=== PATIENT | female | born 1980 | race African-American/Black ===

== ENCOUNTER 2016-09-25 17:20 | Emergency (ER) | payer OTHER ==
[~2016-09-25] VITALS: Ht 154.9 cm; Wt 90.7 kg
[~2016-09-25 17:20] MED LIST: ATOR40TA59 PO; BUTA1CAP29 PO; HYDR50TA6 PO; IBUP-1027 PO; ONDA4TAB10 SL; POTA20TA82 PO; SULF1TAB24 PO
[2016-09-25 17:59] VITALS: BP 122/79
[2016-09-25] MEDS ORDERED: NAPROXEN 500 MG TABLET PO STA (18:08)
[2016-09-25] MEDS ORDERED: HYDROcodone/APAP 5/325MG 1 TAB TABLET PO ONE (18:15)
[2016-09-25] MEDS ORDERED: CYCLOBENZAPRINE 10 MG TABLET. PO ONE (18:15)
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
[2016-09-25] MEDS ORDERED: CYCL10TA2 PO (19:13)
[2016-09-25] MEDS ORDERED: DICL50TA2 PO (19:13)
[2016-09-25] MEDS ORDERED: DICL100G7 TP (19:13)
--- NOTE | 2016-09-26 08:36 | RAD ---
Examination: 3 views of the left elbow History: History of left elbow pain, injury. Comparison: None available Findings: The alignment of the elbow joint grossly appears unremarkable. There is no obvious acute fracture identified. Impression: No acute osseous findings
--- NOTE | 2016-09-26 08:37 | RAD ---
Examination: 3 views of the left shoulder History: History of injury, pain. Comparison: None available Findings: The acromioclavicular joint grossly appears unremarkable. The humerus head is within the glenoid. There is no acute fracture identified. Impression: No acute osseous findings
== END 2016-09-25 19:22 | disposition home or self-care (01) ==
LOC: ER 19:07
DX: S46.912A Strain of unspecified muscle, fascia and tendon at shoulder and upper arm level, left arm, initial encounter (principal); S53.402A Unspecified sprain of left elbow, initial encounter; E78.00 Pure hypercholesterolemia, unspecified; I10 Essential (primary) hypertension; F17.200 Nicotine dependence, unspecified, uncomplicated; X58.XXXA Exposure to other specified factors, initial encounter; Y93.89 Activity, other specified; Y99.8 Other external cause status; Y92.89 Other specified places as the place of occurrence of the external cause
CPT/HCPCS: 73030; 73080; 99284

== ENCOUNTER 2017-03-04 19:45 | Emergency (ER) | payer OTHER ==
[~2017-03-04] VITALS: Ht 154.9 cm; Wt 83.9 kg
[~2017-03-04 19:45] MED LIST changes: +CYCL10TA2 PO; +DICL100G18 TP; +DICL50TA2 PO
[2017-03-04] MEDS ORDERED: HYDROcodone/APAP 5/325MG 1 TAB TABLET PO ONE (20:30)
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
[2017-03-04] MEDS ORDERED: HYDR-971 PO (21:44)
[2017-03-04] MEDS ORDERED: CYCL5TAB PO (21:44)
[2017-03-04 21:56] VITALS: BP 121/78
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
== END 2017-03-04 21:56 | disposition home or self-care (01) ==
LOC: ER 19:45
DX: S16.1XXA Strain of muscle, fascia and tendon at neck level, initial encounter (principal); S49.91XA Unspecified injury of right shoulder and upper arm, initial encounter; E78.00 Pure hypercholesterolemia, unspecified; I10 Essential (primary) hypertension; V43.52XA Car driver injured in collision with other type car in traffic accident, initial encounter; Y93.I9 Activity, other involving external motion; Y92.410 Unspecified street and highway as the place of occurrence of the external cause; Y99.8 Other external cause status
CPT/HCPCS: 72040; 73030; 99284

== ENCOUNTER 2017-12-30 13:51 | Emergency (ER) | payer OTHER ==
[~2017-12-30] VITALS: Ht 154.9 cm; Wt 83.9 kg
[~2017-12-30 13:51] MED LIST changes: +CYCL5TAB PO; +HYDR-971 PO
[2017-12-30 14:10] VITALS: BP 127/78
--- NOTE | 2017-12-30 14:26 | PHYS DOC ---
Past Medical History Past Medical History: High Cholesterol, Hypertension, Sinusitis Additional Past Medical Histor: SEASONAL ALLERGIES Past Surgical History: Tubal ligation Alcohol Use: Occasionally Drug Use: None Adult General Chief Complaint Chief Complaint: HEADACHE HPI HPI Patient is a 37 year old female with history of hypertension, smoking, who presents today complaining of a 8/10 frontal headache with frontal pressure that began one week ago. Patient states she has history of seasonal allergies and is supposed to be on an allergy medicine. Patient states she has not taken the medication 4 weeks because her insurance was out and she could not afford the medication. Patient denies any fever. Denies this being the worst headache in her life. Has not tried anything for the headache. Review of Systems Review of Systems Constitutional: Denies fever or chills [] Eyes: Denies change in visual acuity, redness, or eye pain [] HENT: Denies nasal congestion or sore throat [] Respiratory: Denies cough or shortness of breath [] Cardiovascular: No additional information not addressed in HPI [] GI: Denies abdominal pain, nausea, vomiting, bloody stools or diarrhea [] : Denies dysuria or hematuria [] Musculoskeletal: Denies back pain or joint pain [] Integument: Denies rash or skin lesions [] Neurologic: Reports headache, reports frontal head pressure, denies focal weakness or sensory changes [] All other systems were reviewed and found to be within normal limits, except as documented in this note. Current Medications Current Medications Current Medications Medications (Trade) Dose Ordered Sig/Juan Start Time Stop Time Status Last Admin Dose Admin Dexamethasone Sodium Phosphate (Decadron) 10 mg 1X ONCE 12/30/17 14:30 12/30/17 14:31 DC Ketorolac Tromethamine (Toradol Im) 60 mg 1X ONCE 12/30/17 14:30 12/30/17 14:31 DC Allergies Allergies Allergies Coded Allergies Type Severity Reaction Last Updated Verified No Known Drug Allergies 12/02/15 No Physical Exam Physical Exam Constitutional: Well developed, well nourished, no acute distress, non-toxic appearance. [] HENT: Normocephalic, atraumatic, bilateral external ears normal, oropharynx moist, no oral exudates, nose normal. [] Eyes: PERRLA, EOMI, conjunctiva normal, no discharge. [] Neck: Normal range of motion, no tenderness, supple, no stridor. [] Cardiovascular:Heart rate regular rhythm, no murmur [] Lungs & Thorax: Bilateral breath sounds clear to auscultation [] Abdomen: Bowel sounds normal, soft, no tenderness, no masses, no pulsatile masses. [] Skin: Warm, dry, no erythema, no rash. [] Back: No tenderness, no CVA tenderness. [] Extremities: No tenderness, no cyanosis, no clubbing, ROM intact, no edema. [] Neurologic: Alert and oriented X 3, normal motor function, normal sensory function, no focal deficits noted. Cranial nerves II-XII intact. Psychologic: Affect normal, judgement normal, mood normal. [] Current Patient Data Vital Signs Vital Signs Date Time Temp Pulse Resp B/P (MAP) Pulse Ox O2 Delivery O2 Flow Rate FiO2 12/30/17 14:10 98.9 85 16 127/78 (94) 99 Room Air 98.9 EKG EKG [] Radiology/Procedures Radiology/Procedures [] Course & Med Decision Making Course & Med Decision Making Pertinent Labs and Imaging studies reviewed. (See chart for details) This is a 37-year-old female patient presenting to the ED today with a frontal headache and pressure for one week. Patient has history of seasonal allergies, has not taken has allergy medications because of insurance issues. I recommended she starts using aovp-wjc-jymhrum allergy medications with a decongestant including Claritin-D and Zyrtec-D. Also recommended Flonase. She is afebrile and appears well. Provided return precautions and discharged in stable condition. Follow-up with her own PCP in the next 1-2 weeks. Encouraged patient to consider smoking cessation. Dragon Disclaimer Dragon Disclaimer This electronic medical record was generated, in whole or in part, using a voice recognition dictation system. Departure Departure Impression: Primary Impression: Headache Additional Impressions: Seasonal allergies Smoking addiction Disposition: 01 HOME, SELF-CARE Condition: STABLE Referrals: NON,STAFF (PCP) Follow-up with your doctor in 1-2 weeks Patient Instructions: Headache and Allergies, Smoking Cessation, Tips For Success Additional Instructions: You were evaluated in the emergency room for a headache, we highly recommend you take your allergy medications, you can take [id number] Claritin-D or Zyrtec-D. Also use dwgi-bhh-crpteei Flonase. Follow-up with your doctor in 1-2 weeks. Come back to the ED at any point symptoms worsen. Consider smoking cessation. Scripts Loratadine/Pseudoephedrine (CLARITIN-D 12 HOUR TABLET) 1 Each Tab.er.12h 1 TAB PO BID, #20 TAB Prov: STEVE PHIPPS APRN 12/30/17 Diclofenac Sodium (DICLOFENAC SODIUM) 50 Mg Tablet.dr 1 TAB PO BID, #60 TAB 1 Refill Prov: STEVE PHIPPS APRN 12/30/17 Prednisone (PREDNISONE) 50 Mg Tablet 1 TAB PO DAILY, #5 TAB Prov: STEVE PHIPPS APRN 12/30/17 Problem Qualifiers Primary Impression: Headache Headache type: unspecified Headache chronicity pattern: unspecified pattern Intractability: not intractable Qualified Codes: R51 - Headache STEVE PHIPPS APRN Dec 30, 2017 14:26
[2017-12-30] MEDS ORDERED: KETOROLAC 60 MG/2 ML INJ. IM ONE (14:30)
[2017-12-30] MEDS ORDERED: DEXAMETHASONE SOD PHOS 20 MG/5 ML VIAL. IM ONE (14:30)
[2017-12-30] MEDS ORDERED: PRED50TA PO (14:44)
[2017-12-30] MEDS ORDERED: LORA1TAB47 PO (14:46)
[2017-12-30] MEDS ORDERED: DICL50TA4 PO (14:46)
== END 2017-12-30 14:58 | disposition home or self-care (01) ==
LOC: ER 13:51
DX: R51 Headache (principal); J30.2 Other seasonal allergic rhinitis; E78.00 Pure hypercholesterolemia, unspecified; I10 Essential (primary) hypertension; Z87.891 Personal history of nicotine dependence
CPT/HCPCS: 96372; 99284; J1100; J1885

== ENCOUNTER 2019-10-21 12:22 | Emergency (ER) | payer OTHER ==
[~2019-10-21] VITALS: Ht 154.9 cm; Wt 77.3 kg
[~2019-10-21 12:22] MED LIST changes: -DICL100G18 TP; +DICL100G54 TP; +DICL50TA4 PO; +HYDR-3164 PO; -HYDR-971 PO; +LORA1TAB47 PO; +POTA20TA4 PO; -POTA20TA82 PO; +PRED50TA PO
--- NOTE | 2019-10-21 12:40 | PHYS DOC ---
Past Medical History Past Medical History: High Cholesterol, Hypertension, Sinusitis Additional Past Medical Histor: SEASONAL ALLERGIES Past Surgical History: Tubal ligation Smoking Status: Current Every Day Smoker Alcohol Use: Occasionally Drug Use: None General Adult EDM: Chief Complaint: COUGH HPI: HPI: Patient is a 39 year old female who presents with patient states woke up yesterday with a sore throat, sinus congestion and drainage, headache and intermittent cough. She states that she is only been taking Tylenol of which she did take some before she came to the ER. Patient states she has a hard time swallowing. Upon walking in the room patient is eating a foot long [employer] sandwich without difficulty of swallowing. Patient rates her pain a 6 out of 10. Patient states she has not taken any medications for her other symptoms. Review of Systems: Review of Systems: HENT: nasal congestion or sore throat. [] Respiratory: cough or denies shortness of breath. [] Heart Score: Risk Factors: Risk Factors: DM, Current or recent (<one month) smoker, HTN, HLP, family history of CAD, obesity. Risk Scores: Score 0 - 3: 2.5% MACE over next 6 weeks - Discharge Home Score 4 - 6: 20.3% MACE over next 6 weeks - Admit for Clinical Observation Score 7 - 10: 72.7% MACE over next 6 weeks - Early Invasive Strategies Allergies: Allergies: Allergies Coded Allergies Type Severity Reaction Last Updated Verified No Known Drug Allergies 12/02/15 No Physical Exam: PE: Constitutional: Well developed, well nourished, no acute distress, non-toxic appearance. [] HENT: Normocephalic, atraumatic, bilateral external ears normal, oropharynx moist, no oral exudates, nose normal. Left tonsil 2+ swelling and throat redness. Right tympanic reddened. Left tympanic foggy. [] Eyes: PERRLA, EOMI, conjunctiva normal, no discharge. [] Neck: Normal range of motion, no tenderness, supple, no stridor. [] Cardiovascular:Heart rate regular rhythm, no murmur [] Lungs & Thorax: Bilateral breath sounds clear to auscultation [] Abdomen: Bowel sounds normal, soft, no tenderness, no masses, no pulsatile masses. [] Skin: Warm, dry, no erythema, no rash. [] Back: No tenderness, no CVA tenderness. [] Extremities: No tenderness, no cyanosis, no clubbing, ROM intact, no edema. [] Neurologic: Alert and oriented X 3, normal motor function, normal sensory function, no focal deficits noted. [] Psychologic: Affect normal, judgement normal, mood normal. [] EKG: EKG: [] Radiology/Procedures: Radiology/Procedures: [] Impression: [facility] [address] [place] [address] IMAGING REPORT Signed PATIENT: GILBERT GIRALDO ACCOUNT: [id number] : 1980 LOCATION: ER AGE: 39 SEX: F EXAM STATUS: PRE ER ORD. PHYSICIAN: LISSETTE DAVIES APRN REASON: cough PROCEDURE: PORTABLE CHEST 1V PORTABLE CHEST 1V Clinical Indication: Reason: cough / Spl. Instructions: / History: Comparison: two-view chest December 30, 2015. Findings: The cardiomediastinal silhouette is normal. Lungs are clear. There is no pneumothorax. No pleural effusion is appreciated. No acute bone abnormality. Small well-corticated bone fragment just superior to the distal left clavicle. Finding may be due to old injury. IMPRESSION: No acute cardiopulmonary process. Electronically signed by: Fransisco Whitfield MD (10/21/2019 12:50 PM) [facility] DICTATED and SIGNED BY: FRANSISCO WHITFIELD MD DATE: 10/21/19 1250 Course & Med Decision Making: Course & Med Decision Making Pertinent Labs and Imaging studies reviewed. (See chart for details) [] Alert and oriented. Speaks in full clear sentences. No trismus. Uvula midline. Throat is reddened and left tonsil appears to be 2+ swelling compared to right tonsil. Right tympanic reddened. Left tympanic foggy. Lungs are clear to auscultation all lobes. She is afebrile. Vital signs within normal limits. She has a history of hypertension, high cholesterol, seasonal allergies, tubal ligation and she is a current smoker. Denies being around anyone else that is sick. COVID-19 CRITERIA: The patient was evaluated during the global COVID-19 pandemic, and that diagnosis was suspected/considered upon their initial presentation. Their evaluation, treatment and testing was consistent with current guidelines for patients who present with complaints or symptoms that may be related to COVID-19. Елена Disclaimer: Елена Disclaimer: This electronic medical record was generated, in whole or in part, using a voice recognition dictation system. COVID-19 Patient Risks: Age 65 or older: No Sign of co-morbidity: Yes Exp to person + for COVID: No Exp to PUI: No Travel from affected area: No Lower respiratory symptoms: Yes Fever: No Other: No PPE Use: Full PPE with N95 mask or PAPR: Yes Departure Departure Impression: Primary Impression: Sinusitis Qualified Codes: J01.90 - Acute sinusitis, unspecified Additional Impressions: Otitis media Qualified Codes: H66.001 - Acute suppurative otitis media without spontaneous rupture of ear drum, right ear Sore throat Disposition: HOME, SELF-CARE Condition: STABLE Referrals: NON,STAFF (PCP) Patient Instructions: Otitis Media, Adult, Sinusitis Additional Instructions: Take Tylenol for your pain. Take medications as prescribed and with food. Follow-up with your primary care provider. Try using nasal spray such as Nasonex. Scripts Mometasone Furoate (NASONEX) 17 Gm [place].pump 2 SPRAY NS DAILY, #1 INHALER 5 Refills Prov: LISSETTE DAVIES APRN 10/21/19 Cetirizine Hcl (ZYRTEC) 10 Mg Tablet 1 TAB PO DAILY, #30 TAB 5 Refills Prov: LISSETTE DAVIES APRN 10/21/19 Azithromycin (AZITHROMYCIN TABLET) 250 Mg Tablet 1 PKG PO UD for 5 Days, #6 TAB 0 Refills 2 the first day followed by 1 for days 2-5 Prov: LISSETTE DAVIES APRN 10/21/19 Justicifation of Admission Dx: Justifications for Admission: Justification of Admission Dx: N/A (No admission needed) LISSETTE DAVIES APRN Oct 21, 2019 12:40
--- NOTE | 2019-10-21 12:53 | RAD ---
PORTABLE CHEST 1V Clinical Indication: Reason: cough / Spl. Instructions: / History: Comparison: two-view chest December 30, 2015. Findings: The cardiomediastinal silhouette is normal. Lungs are clear. There is no pneumothorax. No pleural effusion is appreciated. No acute bone abnormality. Small well-corticated bone fragment just superior to the distal left clavicle. Finding may be due to old injury. IMPRESSION: No acute cardiopulmonary process. Electronically signed by: Fransisco Moore MD (10/21/2019 12:50 PM) [facility]
[2019-10-21] MEDS ORDERED: CETI10TA24 PO (13:01)
[2019-10-21] MEDS ORDERED: AZIT250T6 PO (13:01)
[2019-10-21] MEDS ORDERED: MOME17SP NS (13:02)
[2019-10-21 13:03] VITALS: BP 120/77
== END 2019-10-21 13:14 | disposition home or self-care (01) ==
LOC: ER 12:22
DX: J01.90 Acute sinusitis, unspecified (principal); H66.001 Acute suppurative otitis media without spontaneous rupture of ear drum, right ear; E78.00 Pure hypercholesterolemia, unspecified; I10 Essential (primary) hypertension; F17.200 Nicotine dependence, unspecified, uncomplicated
CPT/HCPCS: 71045; 87070; 87880; 99284

== ENCOUNTER 2019-10-23 11:15 | Emergency (ER) | payer SELFPAY ==
[~2019-10-23] VITALS: Ht 154.9 cm; Wt 79.0 kg
[~2019-10-23 11:15] MED LIST changes: +AZIT250T6 PO; +CETI10TA24 PO; +MOME17SP NS
--- NOTE | 2019-10-23 12:11 | PHYS DOC ---
Past Medical History Past Medical History: High Cholesterol, Hypertension, Sinusitis Additional Past Medical Histor: SEASONAL ALLERGIES Past Surgical History: Tubal ligation Smoking Status: Current Every Day Smoker Alcohol Use: Occasionally Drug Use: None General Adult EDM: Chief Complaint: SORE THROAT HPI: HPI: Patient is a 39 year old female presented to ER today for evaluation of sore throat, left-sided neck swelling. Patient was evaluated here on Tuesday, 2 days ago for sore throat, was diagnosed with sinusitis, strep test was negative. Patient was discharged home with Zithromax. Patient says she stopped taking the medication yesterday, she woke up this morning, having more pain on the left side of her neck, her voice became hoarse, hurt to open her mouth. Patient denies fever. Review of Systems: Review of Systems: Constitutional: Denies fever or chills. [] Eyes: Denies change in visual acuity. [] HENT: Positive for nasal congestion, sore throat, neck pain Respiratory: Denies cough or shortness of breath. [] Cardiovascular: Denies chest pain or edema. [] GI: Denies abdominal pain, nausea, vomiting, bloody stools or diarrhea. [] : Denies dysuria. [] Musculoskeletal: Denies back pain or joint pain. [] Integument: Denies rash. [] Neurologic: Denies headache, focal weakness or sensory changes. [] Endocrine: Denies polyuria or polydipsia. [] Lymphatic: Denies swollen glands. [] Psychiatric: Denies depression or anxiety. [] Heart Score: Risk Factors: Risk Factors: DM, Current or recent (<one month) smoker, HTN, HLP, family history of CAD, obesity. Risk Scores: Score 0 - 3: 2.5% MACE over next 6 weeks - Discharge Home Score 4 - 6: 20.3% MACE over next 6 weeks - Admit for Clinical Observation Score 7 - 10: 72.7% MACE over next 6 weeks - Early Invasive Strategies Allergies: Allergies: Allergies Coded Allergies Type Severity Reaction Last Updated Verified No Known Drug Allergies 12/02/15 No Physical Exam: PE: Constitutional: Well developed, well nourished, no acute distress, non-toxic appearance. [] HENT: Normocephalic, atraumatic, bilateral external ears normal, oral pharynx area is erythematous, tonsil swollen, no obvious exudation, left side neck swollen and tender, no trismus. Eyes: PERRLA, EOMI, conjunctiva normal, no discharge. [] Neck: Normal range of motion, Left anterior cervical lymph node swollen and tenderness, supple, no stridor. [] Cardiovascular:Heart rate regular rhythm, no murmur [] Lungs & Thorax: Bilateral breath sounds clear to auscultation [] Abdomen: Bowel sounds normal, soft, no tenderness, no masses, no pulsatile masses. [] Skin: Warm, dry, no erythema, no rash. [] Back: No tenderness, no CVA tenderness. [] Extremities: No tenderness, no cyanosis, no clubbing, ROM intact, no edema. [] Neurologic: Alert and oriented X 3, normal motor function, normal sensory function, no focal deficits noted. [] Psychologic: Affect normal, judgement normal, mood normal. [] Current Patient Data: Vital Signs: Vital Signs Date Time Temp Pulse Resp B/P (MAP) Pulse Ox O2 Delivery O2 Flow Rate FiO2 10/23/19 11:57 98.7 102 18 142/88 (106) 97 Room Air 98.7 EKG: EKG: [] Radiology/Procedures: Radiology/Procedures: [][facility] [address] [place] [address] IMAGING REPORT Signed PATIENT: GILBERT GIRALDO ACCOUNT: [id number] : 1980 LOCATION: ER AGE: 39 SEX: F EXAM STATUS: REG ER ORD. PHYSICIAN: SOTERO ALVES DO REASON: SORETHROAT, LEFT SIDE NECK SWELLING, TONSILAR SWELLING PROCEDURE: CT SOFT TISSUE NECK W/CONTRAST CT SOFT TISSUE NECK W/CONTRAST DATE: 10/23/2019 12:50 PM INDICATION: Reason: SORETHROAT, LEFT SIDE NECK SWELLING, TONSILAR SWELLING / Spl. Instructions: / History: TECHNIQUE: Axial computed tomography of the neck with intravenous contrast according to the standard neck protocol. 65 cc of Isovue-370 was administered intravenously. One or more of the following dose reduction techniques were utilized: Automated exposure control (AEC), Adjustment of mA and/or kV according to patient size, Use of iterative reconstruction technique such as ASiR, CT scan done according to ALARA and image gently/image wisely COMPARISON: None. FINDINGS: Marked enlargement of the palatine tonsils, greater on the left. Hypoattenuating region along/within the left palatine tonsil measuring 1.5 x 1.1 x 2.4 cm (AP by TV by CC). Narrowing of the oropharynx. Enlargement of the adenoids and lingual tonsils. Thickening of the retropharyngeal soft tissues without a discrete fluid collection. Scattered subcentimeter lymph nodes are seen in the neck. None are pathologically enlarged or abnormally enhancing. The parotid, submandibular, and thyroid glands are normal. The muscles of the neck are normal. Vessels of the neck demonstrate normal course, caliber, and enhancement. The visualized posterior fossa and brain is unremarkable. The visualized orbits and paranasal sinuses are normal. The cervical spine is normal. Paraseptal and centrilobular emphysema. IMPRESSION: 1. Marked enlargement of the palatine tonsils with 2.4 cm abscess on the left. There is also enlargement of the adenoids and lingual tonsils, with narrowing of the oropharynx. 2. Thickening of the retropharyngeal soft tissues without a discrete fluid collection. Electronically signed by: Tobin Mckinney MD (10/23/2019 1:48 PM) [id number] DICTATED and SIGNED BY: TOBIN MCKINNEY MD DATE: 10/23/19 1348 Course & Med Decision Making: Course & Med Decision Making Pertinent Labs and Imaging studies reviewed. (See chart for details) Patient is a 39-year-old female who was found to have peritonsillar abscess, there is no ENT surgeon at this hospital, patient will need to be transferred to [facility] for I&D procedure. Dr. Valles accepted patient for transfer to [facility] emergency department. Dragon Disclaimer: Елена Disclaimer: This electronic medical record was generated, in whole or in part, using a voice recognition dictation system. Departure Departure Impression: Primary Impression: Tonsillar abscess Disposition: 02 TRANSFER T-[facility] ACCEPTED BY DR. VALLES) Condition: IMPROVED Referrals: UNKNOWN PCP NAME (PCP) Justicifation of Admission Dx: Justifications for Admission: Justification of Admission Dx: N/A SOTERO ALVES DO Oct 23, 2019 12:11
[2019-10-23] MEDS ORDERED: methylPREDNISolone SOD SUCC PF 125 MG/2 ML VIAL. IV ONE (12:15)
[2019-10-23] MEDS ORDERED: cefTRIAXone IV Push 1 GM VIAL. IVP ONE (12:15)
[2019-10-23 12:26] LABS: BASO # 0.1 x10^3/uL (0.0-0.2); BASO % 0 % (0-3); EOS # 0.1 x10^3/uL (0.0-0.7); EOS % 1 % (0-3); HEMATOCRIT 37.6 % (36.0-47.0); HEMOGLOBIN 12.7 g/dL (12.0-15.5); LYMPH # 1.1 x10^3/uL (1.0-4.8); LYMPH % 7 % (24-48); MEAN CORPUSCULAR HEMOGLOBIN 31 pg (25-35); MEAN CORPUSCULAR HGB CONC 34 g/dL (31-37); MEAN CORPUSCULAR VOLUME 91 fL (79-100); MONO # 1.7 x10^3/uL (0.0-1.1); MONO % 11 % (0-9); NEUT # 12.6 x10^3/uL (1.8-7.7); NEUT % 81 % (31-73); PLATELET COUNT 297 x10^3/uL (140-400); RED BLOOD COUNT 4.11 x10^6/uL (3.50-5.40); RED CELL DISTRIBUTION WIDTH 15.6 % (11.5-14.5); WHITE BLOOD COUNT 15.6 x10^3/uL (4.0-11.0)
[2019-10-23 12:32] LABS: CREATININE 0.8 mg/dL (0.6-1.0); GFR 96.6; POTASSIUM 3.6 mmol/L (3.5-5.1)
[2019-10-23 12:39] LABS: ALBUMIN 2.8 g/dL (3.4-5.0); ALBUMIN/GLOBULIN RATIO 0.6 (1.0-1.7); TOTAL BILIRUBIN 0.3 mg/dL (0.2-1.0); TOTAL PROTEIN 7.5 g/dL (6.4-8.2)
[2019-10-23] MEDS ORDERED: CONTRAST GIVEN. MC PRN (13:15)
[2019-10-23] MEDS ORDERED: IOHEXOL 300 MG/ML 100ML VIAL. IV ONE (13:15)
--- NOTE | 2019-10-23 13:51 | RAD ---
CT SOFT TISSUE NECK W/CONTRAST DATE: 10/23/2019 12:50 PM INDICATION: Reason: SORETHROAT, LEFT SIDE NECK SWELLING, TONSILAR SWELLING / Spl. Instructions: / History: TECHNIQUE: Axial computed tomography of the neck with intravenous contrast according to the standard neck protocol. 65 cc of Isovue-370 was administered intravenously. One or more of the following dose reduction techniques were utilized: Automated exposure control (AEC), Adjustment of mA and/or kV according to patient size, Use of iterative reconstruction technique such as ASiR, CT scan done according to ALARA and image gently/image wisely COMPARISON: None. FINDINGS: Marked enlargement of the palatine tonsils, greater on the left. Hypoattenuating region along/within the left palatine tonsil measuring 1.5 x 1.1 x 2.4 cm (AP by TV by CC). Narrowing of the oropharynx. Enlargement of the adenoids and lingual tonsils. Thickening of the retropharyngeal soft tissues without a discrete fluid collection. Scattered subcentimeter lymph nodes are seen in the neck. None are pathologically enlarged or abnormally enhancing. The parotid, submandibular, and thyroid glands are normal. The muscles of the neck are normal. Vessels of the neck demonstrate normal course, caliber, and enhancement. The visualized posterior fossa and brain is unremarkable. The visualized orbits and paranasal sinuses are normal. The cervical spine is normal. Paraseptal and centrilobular emphysema. IMPRESSION: 1. Marked enlargement of the palatine tonsils with 2.4 cm abscess on the left. There is also enlargement of the adenoids and lingual tonsils, with narrowing of the oropharynx. 2. Thickening of the retropharyngeal soft tissues without a discrete fluid collection. Electronically signed by: Jermaine Mckinney MD (10/23/2019 1:48 PM) [id number]
[2019-10-23 13:52] LABS: % EOS 1 % (0-5); % LYMPHS 9 % (24-48); % MONOS 8 % (0-10); % SEGS 82 % (35-66)
[2019-10-23 13:54] LABS: PLT ESTIMATE ADEQUATE (ADEQUATE)
[2019-10-23 14:23] VITALS: BP 145/87
[2019-10-23] MEDS ORDERED: fentaNYL PF VIAL 100 MCG/2 ML VIAL IVP ONE (14:45)
== END 2019-10-23 15:21 | disposition short-term general hospital (02) ==
LOC: ER 11:15
DX: J36 Peritonsillar abscess (principal); I10 Essential (primary) hypertension; E78.00 Pure hypercholesterolemia, unspecified; F17.200 Nicotine dependence, unspecified, uncomplicated
CPT/HCPCS: 36415; 70491; 80053; 85007; 85025; 96374; 96375; 99285; J0696; J2930; J3010; Q9967; U0003

== ENCOUNTER 2020-08-09 18:39 | Emergency (ER) | payer SELFPAY ==
[~2020-08-09] VITALS: Ht 154.9 cm; Wt 92.0 kg
[~2020-08-09 18:39] MED LIST changes: -CETI10TA24 PO; +CETI10TA74 PO; -HYDR50TA6 PO; +HYDR50TA9 PO
--- NOTE | 2020-08-09 18:51 | PHYS DOC ---
Past Medical History Past Medical History: High Cholesterol, Hypertension, Sinusitis Additional Past Medical Histor: SEASONAL ALLERGIES Past Surgical History: Tubal ligation Smoking Status: Current Every Day Smoker Alcohol Use: Occasionally Drug Use: None General Adult EDM: Chief Complaint: ALTERED MENTAL STATUS HPI: HPI: Patient is a 40 year old female who presents with altered mental status. Patient was found asleep and intoxicated in her car at a gas station-- after the attendant noted that the patient had been sitting in car for 30 minutes and called fire station to further investigate. En route to ED patient was given Narcan by EMS which did not improve for her condition. Patient admits to drinking alcohol, and having several beers before driving. Patient denies any other drug use or prescription drug use. HPI limited secondary to patient intoxication. Review of Systems: Review of Systems: Review of systems limited secondary to intoxication. Heart Score: C/O Chest Pain: N/A Allergies: Allergies: Allergies Coded Allergies Type Severity Reaction Last Updated Verified No Known Drug Allergies 12/02/15 No Physical Exam: PE: Constitutional: Well developed, well nourished, no acute distress, non-toxic appearance HENT: Normocephalic, atraumatic Eyes: PERRL, EOMI, conjunctiva normal, no discharge. Horizontal nystagmus present Neck: Normal range of motion, no tenderness, supple Lungs & Thorax: No respiratory distress, equal chest rise and fall Abdomen: Soft, no tenderness Skin: Warm, dry, no erythema, no rash Back: No tenderness, no CVA tenderness Extremities: No tenderness, ROM intact, no edema Neurologic: Normal motor function, normal sensory function, no focal deficits noted Psychologic: Affect normal, judgment normal EKG: EKG: EKG reviewed at 1846. Sinus tachycardia, no STEMI, no A. fib, no peaked T waves. HR 101 bpm. QT/QTc 336/436 ms Radiology/Procedures: Radiology/Procedures: [] Course & Med Decision Making: Course & Med Decision Making Pertinent Labs and Imaging studies reviewed. (See chart for details) Patient is intoxicated female brought in to the ED by EMS--and was found to have JOHN of 314. EKG was obtained which showed sinus tachycardia but no other abnormalities. Patient was given banana bag and IV fluid. Labs were drawn which showed no emergent abnormalities. Toxicology showed no other drugs or abnormal results. Urine sample showed trichomonas and patient was discharged with prescription for antibiotics. Patient's intoxication improved throughout duration of her ED stay, was able to ambulate normally and hold a conversation prior to discharge. Patient received a ride home from ED. Patient stable for discharge with outpatient follow-up with PCP. Discussed findings and plan with patient, who acknowledges understanding and agreement. Елена Disclaimer: Елена Disclaimer: This electronic medical record was generated, in whole or in part, using a voice recognition dictation system. Departure Departure Impression: Primary Impression: Alcohol intoxication Qualified Codes: F10.920 - Alcohol use, unspecified with intoxication, uncomplicated Additional Impression: Trichomonal cystitis Disposition: 01 DC HOME SELF CARE/HOMELESS Condition: STABLE Referrals: UNKNOWN PCP NAME (PCP) Patient Instructions: Alcohol Intoxication, Yriy-mi-Dzbf, How Much is Too Much Alcohol, Vjfa-of-Wvog, Trichomoniasis-Brief Scripts Metronidazole (FLAGYL) 500 Mg Tablet 500 MG PO BID for Vaginosis for 7 Days, #14 TAB Prov: HEIKE ARAYA DO 08/09/20 HEIKE ARAYA DO Aug 09, 2020 18:51
[2020-08-09] MEDS ORDERED: MULTIVIT INFUSN,ADULT 4,VIT K 10 ML, THIAMINE INJ 100 MG, FOLIC ACID INJ 1 MG in IV NOR... IV ONE (19:00)
[2020-08-09 19:12] LABS: BASO # 0.1 x10^3/uL (0.0-0.2); BASO % 1 % (0-3); EOS # 0.2 x10^3/uL (0.0-0.7); EOS % 3 % (0-3); HEMATOCRIT 37.3 % (36.0-47.0); HEMOGLOBIN 12.3 g/dL (12.0-15.5); LYMPH # 2.1 x10^3/uL (1.0-4.8); LYMPH % 41 % (24-48); MEAN CORPUSCULAR HEMOGLOBIN 30 pg (25-35); MEAN CORPUSCULAR HGB CONC 33 g/dL (31-37); MEAN CORPUSCULAR VOLUME 90 fL (79-100); MONO # 0.5 x10^3/uL (0.0-1.1); MONO % 9 % (0-9); NEUT # 2.3 x10^3/uL (1.8-7.7); NEUT % 45 % (31-73); PLATELET COUNT 203 x10^3/uL (140-400); RED BLOOD COUNT 4.12 x10^6/uL (3.50-5.40); WHITE BLOOD COUNT 5.1 x10^3/uL (4.0-11.0)
[2020-08-09 19:13] LABS: BILIRUBIN,URINE NEGATIVE (NEG); CLARITY,URINE CLEAR; COLOR,URINE YELLOW; NITRITE,URINE NEGATIVE (NEG); PROTEIN,URINE NEGATIVE (NEG-TRACE); UROBILINOGEN,URINE 0.2 mg/dL (0.2 mg/dL)
[2020-08-09 19:16] LABS: CREATININE 0.8 mg/dL (0.6-1.0); GFR 96.1; POTASSIUM 3.9 mmol/L (3.5-5.1)
[2020-08-09 19:20] LABS: BARBITURATES NEG (NEG); BENZODIAZEPINES NEG (NEG); CANNABINOIDS NEG (NEG); COCAINE NEG (NEG); METHADONE NEG (NEG); OPIATES NEG (NEG); PHENCYCLIDINE NEG (NEG); TRICHOMONAS,URINE PRESENT
[2020-08-09 19:20] LABS: ALBUMIN 3.6 g/dL (3.4-5.0); ALBUMIN/GLOBULIN RATIO 0.8 (1.0-1.7); MAGNESIUM 2.3 mg/dL (1.8-2.4); TOTAL BILIRUBIN 0.2 mg/dL (0.2-1.0); TOTAL PROTEIN 8.3 g/dL (6.4-8.2)
[2020-08-09 19:21] LABS: AMPHETAMINE/METHAMPHETAMINE NEG (NEG); BACTERIA,URINE 0 /HPF (0-FEW); RBC,URINE 0 /HPF (0-2); WBC,URINE RARE /HPF (0-4)
[2020-08-09 20:36] VITALS: BP 133/96
--- NOTE | 2020-08-09 20:39 | EKG ---
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
[2020-08-09] MEDS ORDERED: metroNIDAZOLE 500 MG TABLET PO ONE (21:00)
[2020-08-09] MEDS ORDERED: METR500T PO (21:26)
== END 2020-08-09 21:29 | disposition home or self-care (01) ==
LOC: ER 18:39
DX: F10.129 Alcohol abuse with intoxication, unspecified (principal); Y90.8 Blood alcohol level of 240 mg/100 ml or more; A59.03 Trichomonal cystitis and urethritis; R41.82 Altered mental status, unspecified; E78.00 Pure hypercholesterolemia, unspecified; I10 Essential (primary) hypertension; F17.200 Nicotine dependence, unspecified, uncomplicated; Z98.51 Tubal ligation status
CPT/HCPCS: 36415; 80053; 80307; 81001; 81025; 83735; 85025; 87086; 93005; 96365; 99285; G0480; J3411; J3490; J7030

== ENCOUNTER 2020-09-04 13:48 | Emergency (ER) | payer SELFPAY ==
[~2020-09-04] VITALS: Ht 154.9 cm; Wt 90.0 kg
[~2020-09-04 13:48] MED LIST changes: +METR500T PO
[2020-09-04] MEDS: NAPROXEN 500 MG TABLET PO STA (14:14)
[2020-09-04] MEDS: predniSONE 10 MG TABLET PO ONE (14:15)
--- NOTE | 2020-09-04 14:23 | ED.ADGEN ---
Past Medical History Past Medical History: High Cholesterol, Hypertension, Sinusitis Additional Past Medical Histor: SEASONAL ALLERGIES Past Surgical History: Tubal ligation Smoking Status: Current Every Day Smoker Alcohol Use: Heavy Drug Use: None General Adult EDM: Chief Complaint: ANKLE PROBLEM HPI: HPI: Patient is a 40 year old AA female who presents to the ER with complaints of right medial ankle pain and swelling. PT states she twisted the affected ankle 3 weeks ago but the swelling did not develop until 3 days ago. She denies any new injury to the affected joint. Pt reports that she recently traveled to [place] via [employer] to see her son. She reports that for the last 3 days the ankle pain shoots to her calf. The pain also increases with any flexion or extension of her R foot. She denies any fever, body aches, numbness, tingling, or weakness of the affected extremity. Pt states she is only able to ambulate with a limp and cannot bear weight normally on the affected extremity. She currently rates the pain a 9/10 on the left pain scale she reports the pain increases to a 10/10 with palpation of the medial right ankle, movement, and weight bearing. She denies any pain to the lateral aspect of her right ankle. Review of Systems: Review of Systems: Complete ROS is negative unless otherwise noted in HPI. Current Medications: Current Medications Medications (Trade) Dose Ordered Sig/[facility] Start Time Stop Time Status Last Admin Dose Admin Lidocaine HCl (Lidocaine 1% 20ml Vial) 20 ml STK-MED ONCE 09/04/20 16:07 09/04/20 16:07 DC Naproxen (Naprosyn) 500 mg 1X STAT 09/04/20 14:01 09/04/20 14:07 DC 09/04/20 14:14 500 MG Prednisone (Prednisone) 50 mg 1X ONCE 09/04/20 14:15 09/04/20 14:16 DC 09/04/20 14:15 50 MG Allergies: Allergies: Allergies Coded Allergies Type Severity Reaction Last Updated Verified No Known Drug Allergies 12/02/15 No Physical Exam: PE: See Above Constitutional: Well developed, well nourished, no acute distress, non-toxic appearance. Dian HENT: Normocephalic, atraumatic, bilateral external ears normal, nose normal. [] Eyes: PERRLA, EOMI, conjunctiva normal, no discharge. [] Neck: Normal range of motion, no stridor. [] Cardiovascular:Heart rate regular rhythm Lungs & Thorax: Respirations even and unlabored, no retractions, no respiratory distress Skin: Warm, dry; some erythema and warmth to the medial right ankle otherwise unremarkable, cap refill less than 2 seconds Extremities: Right ankle: Medial tenderness to palpation, no lateral tenderness to palpation, 1+ edema to medial aspect of ankle, no crepitus, no obvious deformity, no cyanosis, patient reports increased pain with dorsiflexion and ghassan si extension, 2+ pedal and posterior tibial pulses Neurologic: Alert and oriented X 3, sensation intact, no focal deficits noted. [] Psychologic: Affect normal, judgement normal, mood normal. [] Current Patient Data: Labs: Laboratory Tests Test 09/04/20 14:17 White Blood Count 6.6 x10^3/uL (4.0-11.0) Red Blood Count 3.97 x10^6/uL (3.50-5.40) Hemoglobin 12.1 g/dL (12.0-15.5) Hematocrit 35.4 % (36.0-47.0) L Mean Corpuscular Volume 89 fL (79-100) Mean Corpuscular Hemoglobin 30 pg (25-35) Mean Corpuscular Hemoglobin Concent 34 g/dL (31-37) Red Cell Distribution Width 15.9 % (11.5-14.5) H Platelet Count 176 x10^3/uL (140-400) Neutrophils (%) (Auto) 63 % (31-73) Lymphocytes (%) (Auto) 25 % (24-48) Monocytes (%) (Auto) 9 % (0-9) Eosinophils (%) (Auto) 2 % (0-3) Basophils (%) (Auto) 1 % (0-3) Neutrophils # (Auto) 4.2 x10^3/uL (1.8-7.7) Lymphocytes # (Auto) 1.6 x10^3/uL (1.0-4.8) Monocytes # (Auto) 0.6 x10^3/uL (0.0-1.1) Eosinophils # (Auto) 0.1 x10^3/uL (0.0-0.7) Basophils # (Auto) 0.1 x10^3/uL (0.0-0.2) Uric Acid 6.7 mg/dL (2.6-6.0) H C-Reactive Protein, Quantitative 22.0 mg/L (0-3.3) H Laboratory Tests 09/04/20 14:17 Microbiology 09/04/20 Gram Stain - Final, Resulted 09/04/20 Aerobic Culture, Resulted Pending Vital Signs: Vital Signs Date Time Temp Pulse Resp B/P (MAP) Pulse Ox O2 Delivery O2 Flow Rate FiO2 09/04/20 21:30 98 19 150/77 (101) 98 Room Air 09/04/20 13:52 98.5 98.5 EKG: EKG: [] Heart Score: C/O Chest Pain: No Radiology/Procedures: Radiology/Procedures: PROCEDURE: VENOUS LOWER EXTREMITY RIGHT EXAM: Right lower extremity venous Doppler sonogram. HISTORY: Pain and swelling. TECHNIQUE: Barraza scale and color Doppler sonographic evaluation of the right lower extremity veins with spectral waveform analysis was performed. FINDINGS: There is normal color flow, normal compressibility and there are normal spectral waveforms in the common femoral, superficial femoral, popliteal, posterior tibial and greater saphenous veins. IMPRESSION: No Doppler evidence of lower extremity deep venous thrombosis. Electronically signed by: Sarah Townsend MD (09/04/2020 3:03 PM) [id number] PROCEDURE: ANKLE RIGHT 3V EXAM: Right ankle, 3 views. HISTORY: Pain and swelling. COMPARISON: None. FINDINGS: 3 views of the right ankle are obtained. There is no fracture, dislocation or subluxation. The ankle mortise is intact. There is no osteochondral lesion. There is soft tissue swelling. IMPRESSION: Soft tissue swelling. No acute osseous finding. [] Course & Med Decision Making: Course & Med Decision Making Pertinent Labs and Imaging studies reviewed. (See chart for details) 2027-Per Amy De La Cruz medical underwriter at [facility] the gram stain does not reveal any microorganisms. I advised the patient of her lab results, and notified her that I have a very low suspicion for this to be due to septic etiology as there were no microorganisms in the aspirated joint fluid. Patient's uric acid and CRP were elevated this is likely due to gout. Patient was given a dose of prednisone and naproxen in the emergency department and reported significant improvement in her symptoms after these medications. Prescriptions were written for naproxen and a prednisone burst. I encouraged patient to follow-up with her primary care doctor in 1 to 2 days, return to the ER if symptoms worsen. Recommended ice, elevation, and activity as tolerated. [] Елена Disclaimer: Елена Disclaimer: This electronic medical record was generated, in whole or in part, using a voice recognition dictation system. Departure Departure Impression: Primary Impression: Acute right ankle pain Additional Impression: Gout of right ankle Disposition: HOME / SELF CARE / HOMELESS Condition: STABLE Referrals: PRICE NUNEZ APRN (PCP) Patient Instructions: Diet - Purine Restricted, Gout, Noka-hy-Pydz Additional Instructions: Fill the prescriptions and take them as directed. Follow the instructions provided. Follow-up with your primary care doctor in the next 1 to 2 days return to the ER if symptoms worsen or fever develops. Scripts Naproxen (NAPROXEN) 500 Mg Tablet 1 TAB PO BID PRN for PAIN for 10 Days, #20 TAB 0 Refills Prov: CUATE BENITES APRN 09/04/20 Prednisone (PREDNISONE) 50 Mg Tablet 1 TAB PO DAILY, #6 TAB 0 Refills Prov: CUATE BENITES APRN 09/04/20 Arthrocentesis Indication: SWOLLEN JOINT Consent: Consent given by patient. Procedure: The right ankle was positioned appropriately and the landmarks were identified. Local anesthesia was 1% lidocaine was used superficially approximately 2 cc. The area was then prepped and draped in the usual sterile fashion. A needle was then introduced into the joint space about 1 cc of clear yellow fluid with a very small amount of blood. A sterile dressing was then applied to the site. The patient tolerated the procedure well. Complications: none. Problem Qualifiers Additional Impression: Gout of right ankle Gout etiology: unspecified cause Chronicity: acute Qualified Codes: M10.9 - Gout, unspecified CUATE BENITES APRN Sep 04, 2020 14:23 CHRISTA WEIR MD Sep 04, 2020 16:35
[2020-09-04 14:38] LABS: BASO # 0.1 x10^3/uL (0.0-0.2); BASO % 1 % (0-3); EOS # 0.1 x10^3/uL (0.0-0.7); EOS % 2 % (0-3); HEMATOCRIT 35.4 % (36.0-47.0); HEMOGLOBIN 12.1 g/dL (12.0-15.5); LYMPH # 1.6 x10^3/uL (1.0-4.8); LYMPH % 25 % (24-48); MEAN CORPUSCULAR HEMOGLOBIN 30 pg (25-35); MEAN CORPUSCULAR HGB CONC 34 g/dL (31-37); MEAN CORPUSCULAR VOLUME 89 fL (79-100); MONO # 0.6 x10^3/uL (0.0-1.1); MONO % 9 % (0-9); NEUT # 4.2 x10^3/uL (1.8-7.7); NEUT % 63 % (31-73); PLATELET COUNT 176 x10^3/uL (140-400); RED BLOOD COUNT 3.97 x10^6/uL (3.50-5.40); RED CELL DISTRIBUTION WIDTH 15.9 % (11.5-14.5); WHITE BLOOD COUNT 6.6 x10^3/uL (4.0-11.0)
[2020-09-04 14:55] LABS: URIC ACID 6.7 mg/dL (2.6-6.0)
--- NOTE | 2020-09-04 15:05 | RAD ---
EXAM: Right lower extremity venous Doppler sonogram. HISTORY: Pain and swelling. TECHNIQUE: Barraza scale and color Doppler sonographic evaluation of the right lower extremity veins wit h spectral waveform analysis was performed. FINDINGS: There is normal color flow, normal compressibility and there are normal spectral waveforms in the common femoral, superficial femoral, popliteal, posterior tibial and greater saphenous veins. IMPRESSION: No Doppler evidence of lower extremity deep venous thrombosis. Electronically signed by: Sarah Townsend MD (09/04/2020 3:03 PM) [id number]
--- NOTE | 2020-09-04 15:07 | RAD ---
EXAM: Right ankle, 3 views. HISTORY: Pain and swelling. COMPARISON: None. FINDINGS: 3 views of the right ankle are obtained. There is no fracture, dislocation or subluxation. The ankle mortise is intact. There is no osteochondral lesion. There is soft tissue swelling. IMPRESSION: Soft tissue swelling. No acute osseous finding. Electronically signed by: Sarah Townsend MD (09/04/2020 3:05 PM) [id number]
[2020-09-04] MEDS ORDERED: LIDOCAINE 1% Multi-Dose 20 ML VIAL. ONE (16:07)
[2020-09-04] MEDS ORDERED: NAPR-514 PO (20:40)
[2020-09-04] MEDS ORDERED: PRED50TA PO (20:40)
[2020-09-04 21:30] VITALS: BP 150/77
== END 2020-09-04 21:46 | disposition home or self-care (01) ==
LOC: ER 13:48
DX: M25.571 Pain in right ankle and joints of right foot (principal); M10.9 Gout, unspecified; R60.0 Localized edema; E78.00 Pure hypercholesterolemia, unspecified; I10 Essential (primary) hypertension; F17.200 Nicotine dependence, unspecified, uncomplicated; F10.10 Alcohol abuse, uncomplicated; Z98.51 Tubal ligation status
CPT/HCPCS: 20605; 36415; 73610; 84550; 85025; 86140; 87070; 93971; 99285; J7512

== ENCOUNTER 2021-05-05 00:17 | Emergency (ER) | payer SELFPAY ==
[~2021-05-05] VITALS: Ht 165.1 cm; Wt 98.4 kg
[~2021-05-05 00:17] MED LIST changes: +CYCL10TA19 PO; -CYCL10TA2 PO; -MOME17SP NS; +MOME17SP5 NS; +NAPR-514 PO
[2021-05-05] MEDS ORDERED: ACET500T68 PO (01:36)
[2021-05-05] MEDS ORDERED: IBUP-1007 PO (01:36)
--- NOTE | 2021-05-05 01:36 | PHYS DOC ---
Past Medical History Past Medical History: High Cholesterol, Hypertension, Sinusitis Additional Past Medical Histor: SEASONAL ALLERGIES, GOUT Past Surgical History: Tubal ligation Smoking Status: Current Every Day Smoker Alcohol Use: Heavy Drug Use: None Adult General Chief Complaint Chief Complaint: KNEE INJURY HPI HPI The patient is a 40-year-old female with a history of hypertension and gout who presents for evaluation of acute onset of left knee discomfort while ambulating prior to arrival. Patient states that she felt a pop followed by discomfort to her medial right knee. Discomfort is mild and she is able to ambulate with a narrow, steady gait. No therapy for symptoms prior to arrival. She did not fall or hit or hurt anything else. Review of Systems Review of Systems A 12 point review of systems was completed and was negative except where noted in HPI above. Current Medications Current Medications Current Medications Medications (Trade) Dose Ordered Sig/Juan Start Time Stop Time Status Last Admin Dose Admin Acetaminophen (Tylenol) 1,000 mg 1X ONCE 05/05/21 02:00 05/05/21 02:01 Ibuprofen (Motrin) 800 mg 1X ONCE 05/05/21 02:00 05/05/21 02:01 Allergies Allergies Allergies Coded Allergies Type Severity Reaction Last Updated Verified No Known Drug Allergies 12/02/15 No Physical Exam Physical Exam 40-year-old female appearing nontoxic and in no acute distress. Head is normocephalic and atraumatic. Neck is supple and nontender. Oropharynx is moist. Lungs are clear to auscultation at all stations. There is a normal S1 and S2 without rubs or gallops and capillary refill is appropriate, less than 2 seconds globally. Abdomen is soft, nontender nondistended. Skin is warm and dry without cyanosis, clubbing or edema. Psychiatrically, the patient demonstrates appropriate mood and affect and is alert. Evaluation of the right lower extremity is remarkable for very mild tenderness without swelling or erythema noted to the medial anterior right knee. No joint irritability to the knee. No fusiform swelling of the knee. No significant discomfort with ranging of the knee at all. No discomfort with range of any other joint of the right lower extremity. No calf tenderness or swelling bilaterally. Right lower extremity is neurovascular intact distally with strength 5-5, sensation intact light touch in all nerve distributions, radial, DP and PT pulses 2+ and equal bilaterally, capillary refill less than 2 seconds, hands and feet warm and well- perfused. No dependent peripheral edema distally. Current Patient Data Vital Signs Vital Signs Date Time Temp Pulse Resp B/P (MAP) Pulse Ox O2 Delivery O2 Flow Rate FiO2 05/05/21 00:45 98.5 87 18 132/85 (101) 99 Room Air 98.5 EKG EKG [] Radiology/Procedures Radiology/Procedures [] Course & Med Decision Making Course & Med Decision Making Acute internal derangement of soft tissues of the right knee. No clear indication for plain films given lack of trauma. Clinical examination highly reassuring. No evidence for septic arthritis, gout flare or other acute process. Will treat with anti-inflammatory course. Patient is to rest, ice and elevate and to follow-up closely with her doctor. She understands that if he feels worse instead of better or develops other new symptoms of concern that she will need to return to the emergency department immediately for reevaluation. All questions are answered. Dragon Disclaimer Dragon Disclaimer This electronic medical record was generated, in whole or in part, using a voice recognition dictation system. Departure Departure Impression: Primary Impression: Acute internal derangement of right knee Disposition: 01 HOME / SELF CARE / HOMELESS Condition: GOOD Referrals: PRICE NUNEZ APRN (PCP) Patient Instructions: Knee Pain Additional Instructions: Follow-up very closely with your primary care doctor in the office in the next 3 to 5 days for a reevaluation of your symptoms and to discussion of next best steps in care. Rest, ice and elevate your knee. Take a 600 mg ibuprofen every 6 hours on a schedule, with food to prevent stomach upset, for the next 3 to 5 days and then as needed after that, for pain. You may take a 500 mg extract Tylenol pill every 6 hours as needed for pain as well. You may purchase a Velcro knee brace at [facility] or [id number] at the pharmacy if you would like to support and stabilize your knee. Return to the emergency department right away for worsening symptoms of any kind or with any other new symptoms of concern. Scripts Acetaminophen (ACETAMINOPHEN) 500 Mg Tablet 1 TAB PO PRN Q6HRS PRN for pain or fever for 15 Days, #60 TAB 0 Refills Prov: GERA PLATA MD 05/05/21 Ibuprofen (IBUPROFEN) 600 Mg Tablet 600 MG PO PRN Q6HRS PRN for PAIN, #24 TAB take with food or milk Prov: GERA PLATA MD 05/05/21 GERA PLATA MD May 05, 2021 01:36
[2021-05-05] MEDS ORDERED: IBUPROFEN 400 MG TABLET. PO ONE (02:00)
[2021-05-05] MEDS ORDERED: ACETAMINOPHEN 500 MG TABLET PO ONE (02:00)
[2021-05-05 02:24] VITALS: BP 129/78
== END 2021-05-05 02:25 | disposition home or self-care (01) ==
LOC: ER 00:17
DX: M23.91 Unspecified internal derangement of right knee (principal); E78.00 Pure hypercholesterolemia, unspecified; I10 Essential (primary) hypertension; F17.200 Nicotine dependence, unspecified, uncomplicated; M10.9 Gout, unspecified; Z98.51 Tubal ligation status; F10.20 Alcohol dependence, uncomplicated; Y90.9 Presence of alcohol in blood, level not specified
CPT/HCPCS: 99283